=== PATIENT | male | born 1960 | race Caucasian/White ===

== ENCOUNTER 2024-09-17 12:27 | Emergency (ER) | payer SELFPAY ==
[2024-09-17 12:30] VITALS: BP 142/71; PULSE 72; RESP 16; TEMP 36.3; O2SAT 99; BMI 27.3
--- NOTE | 2024-09-17 13:16 | ED_ITS ---
HPI - URI/Sore Throat <Tayler Zambrano PA-C - Last Filed: 09/17/24 19:42> General Chief Complaint: Upper Respiratory Symptoms Stated Complaint: poss walking phneumonia Time Seen by Provider: 09/17/24 13:16 History of Present Illness HPI Narrative: Mr. Patel is a pleasant 64-year-old male with a past medical history of GERD, COVID 1 year ago who presents to the emergency department for cough, fatigue x1 week. Patient is concerned for possible walking pneumonia states his symptoms feel similar to having that in the past. Reports over the last week his cough has continued to get worse and he also was feeling more tired. He also admits to sore throat. Reports this morning he took [place] and Robitussin. No vomiting or diarrhea, abdominal pain, chest pain, shortness of breath. No fevers. He does not smoke. Review of Systems <Tayler Zambrano PA-C - Last Filed: 09/17/24 19:42> Review of Systems ROS Unobtainable: All systems reviewed & are unremarkable except as noted in HPI and below Exam <Tayler Zambrano PA-C - Last Filed: 09/17/24 19:42> Narrative Exam Narrative: GENERAL: 64 year old patient appears stated age. Well-developed patient, in no acute distress. HEAD: Atraumatic. Normocephalic. EYES: Extraocular motions intact. No scleral icterus. No injection or drainage. ENT: Nose without bleeding, purulent drainage. Throat with mild erythema, NO tonsillar hypertrophy or exudate. Airway patent. NECK: Trachea midline. Cervical ROM intact. CARDIOVASCULAR: Regular rate and rhythm. RESPIRATORY: ?Nonlabored respirations. ?Speaking in clear, full sentences. ?Clear to auscultation. Breath sounds equal bilaterally. No wheezes, rales, or rhonchi. ? GASTROINTESTINAL: Abdomen soft, non-tender, nondistended. EXTREMITIES: No edema or joint tenderness. BACK: Nontender without deformity or crepitance. No flank tenderness. NEURO: AOx3. ?Clear speech. ?Moves all 4 extremities appropriately. SKIN: No rash or erythema of visible areas Initial Vital Signs Initial Vital Signs: Vital Signs Temperature 97.3 F L 09/17/24 12:30 Pulse Rate 72 09/17/24 12:30 Respiratory Rate 16 09/17/24 12:30 Blood Pressure 142/71 H 09/17/24 12:30 Pulse Oximetry 99 09/17/24 12:30 Oxygen Delivery Method Room Air 09/17/24 12:30 <Emir Harden MD - Last Filed: 09/30/24 07:53> Initial Vital Signs Initial Vital Signs: Vital Signs Temperature 97.3 F L 09/17/24 12:30 Pulse Rate 72 09/17/24 12:30 Respiratory Rate 16 09/17/24 12:30 Blood Pressure 142/71 H 09/17/24 12:30 Pulse Oximetry 99 09/17/24 12:30 Oxygen Delivery Method Room Air 09/17/24 12:30 Course <Tayler Zambrano PA-C - Last Filed: 09/17/24 19:42> Orders Ordered: Discontinued Medications Acetaminophen (Acetaminophen 325 Mg Tablet) 975 mg PO NOW ONE Stop: 09/17/24 13:28 Vital Signs Vital signs: Vital Signs - 8 hr 09/17/24 12:30 Temperature 97.3 F L Pulse Rate 72 Respiratory Rate 16 Blood Pressure 142/71 H Pulse Oximetry 99 Oxygen Delivery Method Room Air <Emir Harden MD - Last Filed: 09/30/24 07:53> Orders Ordered: Discontinued Medications Acetaminophen (Acetaminophen 325 Mg Tablet) 975 mg PO NOW ONE Stop: 09/17/24 13:28 Vital Signs Vital signs: Vital Signs - 8 hr 09/17/24 12:30 Temperature 97.3 F L Pulse Rate 72 Respiratory Rate 16 Blood Pressure 142/71 H Pulse Oximetry 99 Oxygen Delivery Method Room Air MDM - URI/Sore Throat <Tayler Zambrano PA-C - Last Filed: 09/17/24 19:42> Medical Records Medical records narrative: None available for review. Lab Data Labs: Lab Results 09/17/24 Range/Units 12:35 SARS-CoV-2 (PCR) Negative (Negative) Influenza A (RT-PCR) Flu a negative (NEGATIVE) Influenza B (RT-PCR) Flu b negative (NEGATIVE) RSV (PCR) Positive A (Negative) MDM Narrative Medical decision making narrative: 64-year-old male with a past medical history of GERD, COVID 1 year ago who presents to the emergency department for cough, fatigue x1 week. Nonsmoker. Differential diagnosis includes but isn't limited to viral URI, bronchitis, pneumonia, etc. On exam patient is in no acute distress, nontoxic appearing, vital signs appropriate. No obvious abnormal lung sounds on exam however given history of worsening cough and fatigue for the last week, we will obtain chest x-ray to rule out pneumonia or other infiltrate. Viral swab obtained. We will treat body aches with acetaminophen. After my evaluation and discussing plan with the patient, which he was agreeable to, I was informed that the patient decided to leave before treatment completed. He became upset regarding or registration/payment/health insurance information. Received call from patient at 1830. He apologized for getting upset and leaving earlier today. I did discuss with the patient his positive RSV viral swab result and discussed supportive care. Made it clear to patient that he is welcome to come back to the emergency department at any time to have his chest x-ray obtained or for further workup. Discussed supportive care for RSV and signs and symptoms to return to ED immediately for. <Emir Harden MD - Last Filed: 09/30/24 07:53> Lab Data Labs: Lab Results 09/17/24 Range/Units 12:35 SARS-CoV-2 (PCR) Negative (Negative) Influenza A (RT-PCR) Flu a negative (NEGATIVE) Influenza B (RT-PCR) Flu b negative (NEGATIVE) RSV (PCR) Positive A (Negative) Discharge Plan Departure Patient Disposition: Left Against Medical Advice Clinical Impression: Patient left before treatment completed, Patient left after initial assessment, Patient left care setting after refusal of treatment Stand Alone Forms: Patient Portal/API, Against Medical Advice ED Sign-out <Emir Harden MD - Last Filed: 09/30/24 07:53> Cosign ED Attending Cosignature Attestation: I was immediately available in the department for consultation. ?This documentation has been reviewed and I agree with assessment and plan. Supervised by Emir Harden MD
[2024-09-17 13:22] LABS: Influenza A - CEPHEID Flu A NEGATIVE (NEGATIVE); Influenza B - CEPHEID Flu B NEGATIVE (NEGATIVE); Respiratory Syncytial Virus POSITIVE (Negative)
[2024-09-17 13:23] LABS: COVID-19 CEPHEID 4-PLEX PCR Negative (Negative)
== END 2024-09-17 13:40 | disposition left against medical advice (07) ==
LOC: ED 13:31
PROVIDERS: Emergency Provider Physician Assistant
DX: B33.8 Other specified viral diseases (principal); R05.9 Cough, unspecified; Z86.16 Personal history of COVID-19
CPT/HCPCS: 0241U; 99281; 99282

== ENCOUNTER 2025-06-07 07:27 | Emergency (ER) | payer MEDICARE, MEDICAID, SELFPAY ==
[2025-06-07 07:40] VITALS: BP 163/95; PULSE 71; RESP 18; TEMP 36.4; O2SAT 98; BMI 27.3
--- NOTE | 2025-06-07 07:44 | PC.NURSE ---
Patient arrives agitated, natty and verbally demeaning to staff. This RN informed patient that we are there to help him and informed him of members of his care team and that the provider would be there shortly to see him. Patient states I demand to see an treatment specialist only and I demand broad spectum antibiotics now. This RN educated patient that we have an emergency room provider and that they would come see him as soon as they could and if any specialist was needed the emergency room provider would contact them and create a plan of care for this patient. This RN immediately informed provider of patient concerns.
--- NOTE | 2025-06-07 07:45 | ED.EYEPROB ---
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 He denies any foreign body sensation, trauma to the area, fever, chills, body aches, headache, neck pain, eye drainage. Nothing makes it better. He has not done anything for it. He does not wear any contacts or glasses. Patient is very irritated, asking repeatedly for coverage for Pseudomonas and to see an eye doctor at this time, states he does not want to lose that eye. Requesting to see an eye doctor here for which we do not have an eye doctor here on the weekend. Other than what is stated 14 point review of system is negative. Related Data Previous Rx's ?Medication ?Instructions ?Recorded gentamicin 0.3 % eye drops 2 drp EYE-LEFT Q6H 5 days #5 mL 06/07/25 Allergies Allergy/AdvReac Type Severity Reaction Status Date / Time No Known Drug Allergies Allergy Verified 06/07/25 07:40 Review of Systems Review of Systems ROS Unobtainable: All systems reviewed & are unremarkable except as noted in HPI and below Patient History Social History Smoking Status: Never smoker Smoking Status: Never smoker Exam Narrative Exam Narrative: GENERAL: [65] year old patient appears stated age. Well-developed patient, in mild distress. HEAD: Atraumatic. Normocephalic. EYES: Pupils equal round and reactive. Extraocular motions intact. No scleral icterus. No injection or drainage. ENT: Nose without bleeding, purulent drainage. Throat without erythema, tonsillar hypertrophy or exudate. Airway patent. NECK: Trachea midline. Non tender rBACK: Nontender without deformity or crepitance. No flank tenderness. NEURO: AOx3. SKIN: No rash or erythema of visible areas Initial Vital Signs Initial Vital Signs: Vital Signs Temperature 97.5 F L 06/07/25 07:40 Pulse Rate 71 06/07/25 07:40 Respiratory Rate 18 06/07/25 07:40 Blood Pressure 163/95 H 06/07/25 07:40 Pulse Oximetry 98 06/07/25 07:40 Oxygen Delivery Method Room Air 06/07/25 07:40 Course Orders Ordered: Gentamicin Sulfate (Gentamicin 0.3% Ophth 5 Ml) 1 drops EYE-LEFT QID CABRERA Last Admin: 06/07/25 08:11 Dose: 1 drops Documented By: RB Discontinued Medications Fluorescein Sodium (Fluorescein 1 Mg Strip) 1 mg EYE-LEFT NOW ONE Stop: 06/07/25 07:54 Last Admin: 06/07/25 07:57 Dose: 1 mg Documented By: RB Proparacaine HCl (Proparacaine 0.5% Ophth Neela) 1 drops EYE-LEFT NOW ONE Stop: 06/07/25 07:54 Last Admin: 06/07/25 07:57 Dose: 1 drops Documented By: RB Vital Signs Vital signs: Vital Signs - 8 hr 06/07/25 07:40 Temperature 97.5 F L Pulse Rate 71 Respiratory Rate 18 Blood Pressure 163/95 H Pulse Oximetry 98 Oxygen Delivery Method Room Air MDM - Eye Problem MDM Narrative Medical decision making narrative: All lab work, vital signs, nurse triage note, medication list, previous ER visits, and all imaging studies reviewed. Two drops proparacaine, fluorescein strip, Wood's lamp used. No fluorescein uptake noted. Able to move eye in all directions. Patient is very irritable, adamantly requesting again multiple times for Pseudomonas coverage with antibiotic eyedrops. 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 Is requesting to see an eye doctor at this time. Differential diagnosis corneal abrasion, ulceration, foreign body, orbital cellulitis, blepharitis, acute closure glaucoma. Visual acuity bilateral 20/30. Right eye 20/25. Left eye 20/40. Patient given gentamicin eyedrops here. Discharge Plan Departure Patient Disposition: Home Clinical Impression: Acute left eye pain Instructions: DI for Eye Pain Activity Restrictions/Additional Instructions: Return with new or worsening symptoms. Follow up with eye doctor tomorrow for re[facility]evaluation [facility] or go directly to [facility] if eye pain returns today. Prescriptions: New gentamicin 0.3 % drops 2 drp EYE-LEFT Q6H 5 Days Qty: 5 0RF Stand Alone Forms: Patient Portal/API
[2025-06-07] MEDS: PROPARACAINE 0.5% OPHTH SOL 1 DROPS EYE-LEFT (07:57)
[2025-06-07] MEDS: FLUORESCEIN 1 MG STRIP EYE-LEFT (07:57)
[2025-06-07] MEDS: GENTAMICIN 0.3% OPHTH 5 ML 1 DROPS EYE-LEFT (08:11)
--- NOTE | 2025-06-07 08:11 | PC.NURSE ---
Provider ordered gentamicin drops of the patient. This RN called pharmacist who sent medication over. This RN immediately scanned the medication and gave to Dr. Rene who administer the eye drop into patient eye.
--- NOTE | 2025-06-07 08:33 | PC.NURSE ---
This RN attempted to perform a nursing assessment but patient denies allowing anyone to look at his eye just the doctor.
[2025-06-07 09:11] VITALS: BP 156/92; PULSE 68; RESP 18; TEMP 36.4; O2SAT 96
== END 2025-06-07 09:12 | disposition home or self-care (01) ==
PROVIDERS: Emergency Provider Family Medicine
DX: H57.12 Ocular pain, left eye (principal)
CPT/HCPCS: 99282